=== PATIENT | female | born 1945 | race Caucasian/White ===

== ENCOUNTER 2022-10-03 14:20 | Outpatient (CLI) | payer MEDICARE, OTHER, SELFPAY ==
--- NOTE | 2022-10-03 14:35 | XR_ITS ---
WS: [id number] SCREENING DEXA SCAN PLUQ CLINICAL INFORMATION: ASYMPTOMATIC MENOPAUSAL STATE COMPARISON: None. FINDINGS: The L1-L4 bone mineral density measures 0.754 g/cm2. This corresponds to a T score score of -3.5 and Z score of -1.8. Left femoral neck bone mineral density measures 0.823 g/cm2. This corresponds to a T score of -1.5 an d Z score of 0.5. Right femoral neck bone mineral density measures 0.804 g/cm2. This corresponds to a T score -1.6of an d Z score of 0.3. Mean femoral neck bone mineral density measures 0.814 g/cm2. This corresponds to a T score of -1.5 an d Z score of 0.4. XR/XR DEXA axial skeleton* 89035 IMPRESSION: Osteoporosis lumbar spine. Osteopenia femoral necks. Patient's FRAX calculated 10 year probability for major osteoporotic fracture i s 22.7 % and osteoporotic hip fracture is 6.1%.
== END 2022-10-03 14:21 | disposition home or self-care (01) ==
LOC: RAD 14:26
PROVIDERS: Family Provider Nurse Practitioner; PCP Family Medicine; Visit Provider Nurse Practitioner Family
DX: Z78.0 Asymptomatic menopausal state (principal); M81.0 Age-related osteoporosis without current pathological fracture
CPT/HCPCS: 77080

== ENCOUNTER 2022-10-16 07:06 | Outpatient (CLI) | payer MEDICARE, OTHER, SELFPAY ==
--- NOTE | 2022-10-16 07:15 | US_ITS ---
WS: [id number] US pelvic complete* 04510 HISTORY: N95.0 - Postmenopausal bleeding COMPARISON: None available. Extremely limited evaluation of the pelvic structures. Patient was unable to tolerate transvaginal im aging. Transabdominal imaging demonstrates a very small atrophic uterus but otherwise very difficult to determine the measurements. The endometrium is not well visualized. Neither ovary is visualized. N o free fluid. US/US pelvic complete* [id number] IMPRESSION: Extremely limited and essentially nondiagnostic evaluation of the pelvic struct ures. Incomplete and limited evaluation of the uterus, endometrium and adnexa.
== END 2022-10-16 07:07 | disposition home or self-care (01) ==
LOC: RAD 07:14
PROVIDERS: Family Provider Nurse Practitioner; PCP Family Medicine; Visit Provider Obstetrics & Gynecology
DX: N95.0 Postmenopausal bleeding (principal)
CPT/HCPCS: 76856

== ENCOUNTER 2022-10-29 11:42 | Day surgery (SDC) | payer MEDICARE, OTHER, SELFPAY ==
[2022-10-25 15:36] VITALS: BMI 26.0
[2022-10-29] VITALS (10 sets, daily range): BP systolic 102–161; BP diastolic 40–87; PULSE 61–81; RESP 14–18; TEMP 36.3–37.5; O2SAT 96–100
--- NOTE | 2022-10-29 12:05 | W.PM.OPSUD ---
Surgery/Procedure H&P Update DATE OF PROCEDURE: October 29, 2022 DATE H&P PERFORMED: 10/25/22 H&P UPDATE INFORMATION: I have reviewed H&P completed within last 30 days, I have examined patient prior to procedure and No changes to prior documentation PREOP DIAGNOSIS: pmb PLANNED PROCEDURE: Operation Date: 10/29/22 13:20 Proposed Procedures p Hysteroscopy, dilation and curettage with Myosure [id number],[id number],48328,N95.0(Not Applicable) - Cece Guevara MD s Dilation And Curettage (D&C)(Not Applicable) - Cece Guevara MD Related Problem List Diagnoses (1) PMB (postmenopausal bleeding):
[2022-10-29] MEDS: sodium chloride 0.9% 1,000 ML 30 ML IV (12:19)
--- NOTE | 2022-10-29 12:34 | ANES.PREANE2 ---
Pre-Anesthetic Assessment Height/Weight: Height 1.6 m Weight 66.678 kg Temp Pulse Resp BP Pulse Ox O2 Del Method 99.5 F 81 18 161/87 96 Room Air 10/29/22 12:10 10/29/22 12:10 10/29/22 12:10 10/29/22 12:10 10/29/22 12:10 10/29/22 12:10 Preop Diagnosis: pmb Operation Date: 10/29/22 13:20 Proposed Procedures p Hysteroscopy, dilation and curettage with Myosure [id number],47010,N95.0(Not Applicable) - Cece Guevara MD s Dilation And Curettage (D&C)(Not Applicable) - Cece Guevara MD Was Beta Ketan taken within 24 hours: N/A Was Clonidine taken within 24 hours: N/A Last intake: Intake Last Liquid Date 10/28/22 Last Liquid Time 18:00 Last Solid Date 10/28/22 Last Solid Time 18:00 Social No alcohol and No tobacco Exam alert and oriented x 3 Airway Submandibular: within normal limits Cervical ROM: within normal limits Mallampati: Class II Dentition: full History/ROS No significant history except as noted Pulmonary None reported CV/HEM None reported None reported Hepatic None reported GI Gastroesophageal Reflux Disease occasional Metabolic None reported Musc/skel None reported Neuropsych None reported Anesthetic Plan ASA status: 2 Anesthesia: Anesthesia Evaluation and General Risk of > 500 ml blood loss (7ml/kg in children): No Medications/Allergies Home Medications Medication Instructions Recorded Confirmed Last Taken Type cinnamon bark 500 mg capsule 550 mg PO DAILY 11/01/21 10/29/22 10/27/22 History (Cinnamon) apple cider vinegar 600 mg capsule 600 mg PO DAILY 10/11/22 10/29/22 10/27/22 History christiana root extract 15 mg chewable 550 mg PO DAILY 10/11/22 10/29/22 10/27/22 History tablet (Dramamine Christiana) calcium carbonate 600 mg-vitamin 1 tab PO DAILY 10/25/22 10/29/22 10/27/22 History D3 5 mcg (200 unit) tablet coenzyme Q10-vit 1 cap PO DAILY 10/25/22 10/29/22 10/27/22 History Z3-G4-H-magnesium-zinc 30 mg-25 mg-25 mg-250 mg cap cranberry extract 250 mg tablet 200 mg PO DAILY 10/25/22 10/29/22 10/27/22 History elderberry fruit 200 mg capsule 50 mg PO DAILY 10/25/22 10/29/22 10/27/22 History misoprostol 200 mcg tablet 600 mcg PO Q6H #24 tabs 10/25/22 10/29/22 10/29/22 06:00 Rx (Cytotec) omega-3 fatty acids 600 mg PO DAILY 10/25/22 10/29/22 10/27/22 History Allergies Allergy/AdvReac Type Severity Reaction Status Date / Time No Known Drug Allergies Allergy Unknown Unknown Verified 10/25/22 15:29 Current Medications Generic Name Dose Route Start Last Admin Trade Name Freq PRN Reason Stop Dose Admin Sodium Chloride 1,000 mls @ 30 mls/hr 10/29/22 12:00 10/29/22 12:19 Sodium Chloride 0.9% IV 10/30/22 11:59 30 mls/hr .Q24H CELIO Administration PFSH Anesthesia Medical History No pertinent past medical history Surgical History No pertinent past surgical history Data Anesthesia Cardiac Studies: No Data to Display
[2022-10-29] MEDS: midazolam 1 mg/mL INJ 2 mL 2 MG IVP (12:43)
[2022-10-29] MEDS: ceFAZolin 2,000 MG in sodium chloride 0.9% (plus) 50 ML 100 MG IV (12:49)
--- NOTE | 2022-10-29 13:44 | P.OP_ITS ---
Operative Report Date of procedure: October 29, 2022 Pre-op diagnosis: Preop Diagnosis pmb Post-op diagnosis: same Post-op findings: suspicious tissue posterior, strange bloody discharge during dilation which was cultured Procedure done: hysteroscopy, dilation and curettage with myosure Specimens removed/disposition: endometrial curettings to pathology aerobic and anaerobic uterine cultures to lab Surgeon: Cece Guevara Anesthesia: General Estimated blood loss (mL): 10 IV fluids (mL): 800 Complications: none Findings: hysteroscopy deficit 315 ml Condition: stable Disposition: PACU Procedure: The patient was taken to the operating room where monitored anesthesia was administered and to be adequate. She was prepped and draped in the normal sterile fashion in the dorsal lithotomy position in Brent stirrups. A weighted speculum was placed into the vagina and the anterior lip of the cervix grasped with a single-tooth tenaculum. The uterus was sounded to 7 cm. The cervix was dilated to 17 [place]. During dilation, a thick, bloody discharge with particulate was encountered. Anaerobic and aerobic cultures were taken. The hysteroscope was advanced into the endometrial cavity. There was clusters of tissue, as well as calcifications visualized. The MyoSure device was activated and the tissue was removed. Pictures were taken pre and post procedure. All instruments were removed. The patient tolerated the procedure well. Sponge lap and needle counts were correct x3. She was taken to the recovery room in stable condition.
--- NOTE | 2022-10-29 14:07 | PM.DCS ---
Discharge Providers Date of Admission: 10/29/22 Date of Discharge: October 29, 2022 Attending Provider at Admission: Dr. Guevara Attending Provider at Discharge: Cece Guevara MD Primary Care Provider: Batsheva Lerma NP Diagnoses at Discharge Discharge Diagnosis (1) PMB (postmenopausal bleeding): Status: Acute Reason for Visit Reason for Visit: [id number]; N95.0 Hospital Course Hospital Course The patient was admitted for surgery. She did well postoperatively and was ready for discharge. Discharge Data Studies Completed and Pending Pending at discharge Category Date Time Status Abscess Culture and Gram Stain Routine Lab 10/29/22 13:28 Ordered Anaerobic Culture Routine Lab 10/29/22 13:28 Ordered Pathology: Surgical [PTH] Routine Pth 10/29/22 13:54 Ordered Vitals Last Vital Signs Temp 99.5 F 10/29/22 12:10 Pulse 81 10/29/22 12:10 Resp 18 10/29/22 12:10 BP 161/87 10/29/22 12:10 Pulse Ox 96 10/29/22 12:10 O2 Del Method Room Air 10/29/22 12:10 O2 Flow Rate 6 10/29/22 13:44 Discharge Plan Discharge Patient Disposition: Home Condition: Stable Prescriptions: Continued cinnamon bark [Cinnamon] 500 mg capsule 550 mg PO DAILY misoprostol [Cytotec] 200 mcg tablet 600 mcg PO Q6H Qty: 24 0RF Rx Instructions: start medication Friday at 6 pm Last dose noon prior to surgery Dramamine Tara 15 mg tablet,chewable 550 mg PO DAILY apple cider vinegar 600 mg capsule 600 mg PO DAILY calcium carbonate-vitamin D3 600 mg-5 mcg (200 unit) Tablet 1 tab PO DAILY omega-3 fatty acids Capsule 600 mg PO DAILY elderberry fruit 200 mg Capsule 50 mg PO DAILY cranberry extract 250 mg Tablet 200 mg PO DAILY [id number] [id number]-Z-mag--zinc 26-70-82-250 mg Capsule 1 cap PO DAILY Discharge Orders: Discharge Order (Routine); Ordered 10/29/22 Ordered By: Cece Guevara Referrals: Cece Guevara MD [Physician] - 11/06/22 2:00 pm Discharge Attestations Time Spent in Discharge Care*: less than 30 min Quality Metrics Clinical Quality Measures [ No reported AMI, CVA or VTE this stay] Coding Level of Care Code Acute Code for Chg Fwd Diagnoses PMB (postmenopausal bleeding) N95.0
[2022-11-01 07:27] LABS: Mismatch Repari Proteins-IHC See Report
== END 2022-10-29 15:05 | disposition home or self-care (01) ==
PROVIDERS: PCP Nurse Practitioner Family; Visit Provider Obstetrics & Gynecology
PROC: 0UDB8ZZ Extraction of Endometrium, Via Natural or Artificial Opening Endoscopic (ICD-10-PCS; CPT 58558; principal; 2022-10-29 13:10)
PROC: (CPT 58120; 2022-10-29 13:10)
DX: C54.1 Malignant neoplasm of endometrium (principal); N95.0 Postmenopausal bleeding; K21.9 Gastro-esophageal reflux disease without esophagitis
CPT/HCPCS: 58558; 87070; 87075; 87205; 88305; 88341; 88342; J0690; J1100; J2250; J2405; J2704; J3010; J7030

== ENCOUNTER → 2022-12-12 12:55 | Outpatient (BNVA) | payer MEDICARE, OTHER, SELFPAY | PROVIDERS: PCP Nurse Practitioner Family; Visit Provider Dermatology | DX: L73.8 Other specified follicular disorders (principal); L82.1 Other seborrheic keratosis; L82.0 Inflamed seborrheic keratosis; L81.4 Other melanin hyperpigmentation | CPT/HCPCS: 17110; 99213 ==

== ENCOUNTER 2023-05-28 10:33 | Outpatient (CLI) | payer MEDICARE, OTHER, SELFPAY ==
--- NOTE | 2023-05-28 10:37 | MM_ITS ---
WS: [id number] BILATERAL 3D TOMOSYNTHESIS DIGITAL SCREENING MAMMOGRAPHY WITH CAD CLINICAL INFORMATION: SCREENING HISTORY: Screening mammogram. No current complaints. COMPARISON: Baseline TECHNIQUE: Bilateral CC and MLO views. FINDINGS: Scattered fibroglandular densities bilaterally. No suspicious focal mass, asymmetry, calcifications, or architectural distortion. No evidence of malignancy. Vascular calcification IMPRESSION: MM/[place] [id number] BI-RADS: 2-Benign FOLLOW UP: 1 Year Follow-up Recommend return to annual screening mammography.
== END 2023-05-28 10:34 | disposition home or self-care (01) ==
LOC: RAD 10:35
PROVIDERS: PCP Nurse Practitioner Family; Visit Provider Nurse Practitioner Family
DX: Z12.31 Encounter for screening mammogram for malignant neoplasm of breast (principal); N64.4 Mastodynia
CPT/HCPCS: 77063; 77067

== ENCOUNTER → 2025-01-26 10:21 | Outpatient (BNVA) | payer MEDICARE, OTHER, SELFPAY | PROVIDERS: PCP Nurse Practitioner Family; Visit Provider Nurse Practitioner Family | DX: L70.0 Acne vulgaris (principal); L73.8 Other specified follicular disorders; L57.8 Other skin changes due to chronic exposure to nonionizing radiation; L81.4 Other melanin hyperpigmentation; L82.1 Other seborrheic keratosis; D22.5 Melanocytic nevi of trunk; L72.0 Epidermal cyst | CPT/HCPCS: 10060; 99214 ==